=== PATIENT | male | born 1955 | race Caucasian/White ===

== ENCOUNTER 2017-04-17 09:32 | Day surgery (SDC) | payer MEDICAID, SELFPAY ==
[2017-04-17] VITALS (7 sets, daily range): BP systolic 98–120; BP diastolic 66–79; PULSE 70–79; RESP 14–16; TEMP 36.2–36.4; O2SAT 93–97; BMI 25.8
[2017-04-17 10:06] LABS: Bedside Glucose 137 mg/dL (70-110)
[2017-04-17] MEDS: Triamcinolone Acetonide 40 MG/ML Vial (11:30)
[2017-04-17] MEDS: Bupivacaine Mpf 0.5% 30 ML VIAL (11:30)
--- NOTE | 2017-04-17 11:53 | OP.PN_ITS ---
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
--- NOTE | 2017-04-17 12:10 | RAD_ITS ---
STUDY: X-RAY - RIGHT FOOT CLINICAL: Male, 61 years old. Questionable foot deformity. TECHNIQUE: AP and lateral view(s) of the foot. COMPARISON: Comparison is made with prior study dated August 21, 2016. FINDINGS: Normal talus, calcaneus, and tarsal bones. Normal visualized subtalar, talonavicular, calcaneocuboid, tarsal and tarsometatarsal articulations. Normal metatarsi. Normal metatarsophalangeal joint of the great toe. Normal tibial and fibular sesamoid bones. Normal interphalangeal joint of the great toe. Normal phalanges of the great toe. Normal second through fifth metatarsophalangeal joints. Normal interphalangeal joints and phalanges of the lesser toes. The soft tissue structures are unremarkable. RAD/Foot 2 Views IMPRESSION: Normal x-ray examination of the foot. Electronically Signed: Jake Travis MD at 13:05 EST Tel [phone], Service support ,
--- NOTE | 2017-04-18 09:04 | PCM.OPRPT ---
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 he complains of persistent pain to his midfoot of right lower extremity. it has been bothering him for many years and is progressively worsening. he last saw me in the fall of 2016 at which time an mri was ordered that showed arthritis of his right 4th tarsal metatarsal joint. I have seen him recently and we have discussed use of inserts which have been ordered but he has yet to scheduled an appointment. we have prescribed him mobic but he developed abnormal reaction (dizziness) from. we did discuss steroid injection under xray guidance. I did discuss risks of this procedure not limited to infection, pain, swelling, bleeding, hematoma, failure to resolve his pain, recurrent pain, need for repeat injection, elevated blood sugars, cardiac arrest, dvt, . patient understands these risks and consents to proceed. patient was transferred from pre-op holding area and placed on operating room table in supine position. he was identified by name and procedure. he was placed under mac anesthesia. the right foot was prepped in sterile fashion. time out was performed. using intra-op xray, a sterile injection consisting of 1/2 cc of kenalog, 1/2 cc of dexamethazone, 1/2 cc of marcaine plain was given to 4th tarsal metatarsal joint. the injection was successfully administered and a band aid was applied. patient was transferred to pacu in stable condition. he will f/u in 1 month
--- NOTE | 2017-04-18 09:09 | OP.PCM_ITS ---
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 he complains of persistent pain to his midfoot of right lower extremity. it has been bothering him for many years and is progressively worsening. he last saw me in the fall of 2016 at which time an mri was ordered that showed arthritis of his right 4th tarsal metatarsal joint. I have seen him recently and we have discussed use of inserts which have been ordered but he has yet to scheduled an appointment. we have prescribed him mobic but he developed abnormal reaction (dizziness) from. we did discuss steroid injection under xray guidance. I did discuss risks of this procedure not limited to infection, pain, swelling, bleeding, hematoma, failure to resolve his pain, recurrent pain, need for repeat injection, elevated blood sugars, cardiac arrest , dvt, . patient understands these risks and consents to proceed. patient was transferred from pre-op holding area and placed on operating room table in supine position. he was identified by name and procedure. he was placed under mac anesthesia. the right foot was prepped in sterile fashion. time out was performed. using intra-op xray, a sterile injection consisting of 1/2 cc of kenalog, 1/2 cc of dexamethazone, 1/2 cc of marcaine plain was given to 4th tarsal metatarsal joint. the injection was successfully administered and a band aid was applied. patient was transferred to pacu in stable condition. he will f/u in 1 month
== END 2017-04-17 12:59 | disposition home or self-care (01) ==
LOC: SDC 09:33 → AC 09:50
PROVIDERS: Family Provider Family Medicine; PCP Family Medicine; Visit Provider Podiatrist Foot & Ankle Surgery
PROC: (CPT 20605; principal; 2017-04-17 11:25)
DX: M13.871 Other specified arthritis, right ankle and foot (principal); E11.9 Type 2 diabetes mellitus without complications; J45.909 Unspecified asthma, uncomplicated; E78.2 Mixed hyperlipidemia; I10 Essential (primary) hypertension; F41.1 Generalized anxiety disorder; I25.10 Atherosclerotic heart disease of native coronary artery without angina pectoris; M47.812 Spondylosis without myelopathy or radiculopathy, cervical region; K21.9 Gastro-esophageal reflux disease without esophagitis; Z79.4 Long term (current) use of insulin; Z79.899 Other long term (current) drug therapy
CPT/HCPCS: 20600; 73620; 76000; 82962; J3010; J7120; J2405

== ENCOUNTER 2018-08-17 18:43 | Emergency (ER) | payer MEDICARE, SELFPAY ==
[2018-08-17 18:44] VITALS: BP 140/79; PULSE 89; RESP 16; TEMP 36.8; O2SAT 95; BMI 25.5
--- NOTE | 2018-08-17 19:51 | ED.DCSUM_ITS ---
- ER Visit Summary Date of Service: 08/17/18 Chief Complaint: Groin pain History of Present Illness: The patient is a 63 M with left groin pain. Symptoms started 3 weeks ago when he was wrestling with his son. He felt a tear. He has had continued pain in his left groin. Worse with movement and hip flexion. Better with rest. No associated symptoms like urinary symptoms, GI symptoms, rash, numbness, weakness. No history of this in the past. Physical Examination: Afebrile and vital signs unremarkable. Patient alert and oriented. No acute distress. Abdomen soft and nontender. Left inguinal region tender to palpation. No masses palpable. Skin appears normal. Hip flexion is intact but weak secondary to pain. Good strength and sensation otherwise. Vascularly intact. Skin unremarkable. Calf normal. Test Results: None Emergency Department Course and Treatment: Patient presents with myofascial pain. This is reproducible on palpation. Concerning for a strain. No other red flag features or findings. I do not believe x-rays will provide any useful information. We will treat the patient medically. [place], anti-inflammatories, rest, use crutches. He has them at home. He will be referred to orthopedics for follow-up. Treatment Plan: As above Disposition: Discharge Impression: 1. Left hip strain This note was generated with [employer] dictation software. It may contain incorrect words, spelling, and punctuation that were not noted in review of the chart prior to signing ED Disposition - Plan for ED Patient: Referrals: Kenny Thomas MD [Primary Care Provider] -
--- NOTE | 2018-08-17 19:54 | ED.DEP ---
ED Disposition - Plan for ED Patient: Instructions: Hip Strain Prescriptions: Hydrocodone Bitart/Apap 5-325 [[employer] 5MG-325MG] 1 tab PO Q6H PRN PRN 3 Days #10 tab PRN Reason: Pain Prescription Printed Referrals: Be Duarte DO [STAFF PHYSICIAN] -
[2018-08-17] MEDS: HYDROcodone Bitartrate/Apap 5/325 Tablet PO (19:59)
[2018-08-17 20:12] VITALS: PULSE 84; RESP 18; O2SAT 99
--- NOTE | 2018-08-17 20:12 | ED.RN ---
THIS NURSE REVIEWED D/C INSTRUCTIONS WITH PT. PT VERBALIZED UNDERSTANDING OF INSTRUCTIONS. PT DENIES FURTHER NEEDS OR QUESTIONS AT THIS TIME. PT ASSISTED TO HIS SISTER'S VEHICLE VIA W/C
== END 2018-08-17 20:13 | disposition home or self-care (01) ==
LOC: ED 19:49
PROVIDERS: Emergency Provider Emergency Medicine; Family Provider Family Medicine; PCP Family Medicine
DX: S76.012A Strain of muscle, fascia and tendon of left hip, initial encounter (principal); X58.XXXA Exposure to other specified factors, initial encounter; Y93.72 Activity, wrestling; Y92.9 Unspecified place or not applicable; E11.9 Type 2 diabetes mellitus without complications; M48.02 Spinal stenosis, cervical region; Z79.4 Long term (current) use of insulin; Z79.899 Other long term (current) drug therapy
CPT/HCPCS: 99283

== ENCOUNTER → 2018-09-06 | Outpatient (CLI) | payer MEDICARE, SELFPAY ==
[2018-08-17 18:44] VITALS: BMI 25.5
--- NOTE | 2018-09-06 09:32 | MRI_ITS ---
HISTORY: contusion left hip, left groin pain, difficulty lifting leg. Pain in left groin area. Symptoms ongoing for 2 months. Type 2 diabetes. EXAMINATION: MR Hip W/O Contrast TECHNIQUE: Multiplanar and multisequence MR images of the left hip. IV Contrast dosage and agent: None. COMPARISON: No comparison imaging of the left hip FINDINGS: BONE: No femoral neck fracture, avascular necrosis of the femoral head. No sacral insufficiency fracture perceived. A small amount of edema is present within the left superior pubic ramus at the origin of the pectineus. Otherwise No suspicious bone marrow signal alteration. JOINT: Articular cartilage is thinned small amount of fluid is present within both hip joints, but these are not large enough to be considered pathological effusions ACETABULAR LABRUM: Suboptimally evaluated on this non-arthrographic study TENDONS: The pectineus tendon at its origin is edematous and thickened on the left MUSCLES: Minimal edema at the origin of the pectineus musculotendinous junction BURSA: No trochanteric bursitis. OTHER SOFT TISSUES: Gluteus medius tendinosis bilaterally, right greater than left. PELVIS: The bladder is mostly decompressed. Bowel gas pattern is normal. No pathologic adenopathy. MRI/Lower Ext Joint Only (Routine) IMPRESSION: Partial avulsion and tendinosis at the origin of the left pectineus tendon. Mild bilateral gluteus medius tendinosis. at 2027 Reported and signed by: Nik Crouch MD Electronically Signed: Nik Crouch MD at 20:26 EDT Tel , Service support ,
== END | disposition home or self-care (01) ==
LOC: MRI 09:25
PROVIDERS: Family Provider Family Medicine; PCP Family Medicine; Referring Provider Physician Assistant; Visit Provider Physician Assistant
DX: S70.02XA Contusion of left hip, initial encounter (principal)
CPT/HCPCS: 73721

== ENCOUNTER 2018-10-12 08:00 | Outpatient (RCR) | payer MEDICARE, SELFPAY ==
--- NOTE | 2018-09-21 09:24 | HP.PTEVAL_ITS ---
Patient's Visit Information ELIJAH MEJIA is a 63 year old M referred to Physical Therapy by Alma Duarte with a diagnosis of L hip strain. Date of Evaluation: 09/21/18 Physical Therapist: Buster Ruiz DPT, OCS, CSCS - Visit Plan Frequency: 3x /Week Duration: 4-6 Weeks Plan: 3x/week for 3-6... 1. ROM gently to hip flexors adn adductors to improve abd and extension. 2. Gradual progression of stretght L hip gentlya t first NWB to WB. 3. Fucntional progression gait and steps. 4. MH and rollout to adductor group and quad/hip flexor prior to stretch. - Subjective Findings: L hip hurts after wrestling with son. felt a sharp pull. Mri showed groin muscle pulled from bone. That was two months ago. Walks with a limp since. Not improving much. Hard to lie comfortably and move leg to pull it centrally. X rays were Ok. No problems prior. Sleep is hard to move and wakes him up Sleeps on back. Comfortable for the most part at rest. Hurts to walk. Transferring hurts. Retired from [employer]. Enjoys fishing and camping [employer] still is camping, slow and painful. Basic ADLs are getting done slow and painful. Has WC and walker at the house to get around. Dogs in house make walker hard. - Pain L hip groin Pain Intensity (Out of 10): 1 Pain Intensity Range: 0, 5 - Objective reflexes patella and achilles 2/3. Sensation LE WNL to gross light touch. strength is 3+ L knee adn 4+ R, 4+ B ankle. R hip is 4+, L hip ext 3+, add 3, abd 3+ adn flexion 3. Defintie pain with adductiona nd flexion. Pt walks antalgic on L and slightly hunched over avoiding ext L hip. Hard to lie flat due to L hip discomfort but improves as he lies there longer. Transfers I chair with UE. Painful with rolling scooting using L hip. Tender to palpation L groin at adductor attachment adn into hip flexor. - Goals Goal 1:: Full aROM L hip without hesitation or pain Goal Time Frame: 4-6 Weeks Goal 2:: Patient able to ambulate without gait deviations Goal Time Frame: 4-6 Weeks Goal 3:: steps reciprocally without pain. 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 Rehabilitation Potential: Fair - Anticipated Interventions Patient/Client Instruction: Educate patient on: Condition, Plan of Care For the Purpose of:: To decrease pain, To increase ROM, To improve muscle performance and motor function, To improve ability of physical actions for home/community/work/leisure Therapeutic Exercise to Include: Strength training, Flexibilty training, Gait and locomotor training, Passive ROM, Active ROM For the Purpose of:: To decrease pain, To increase ROM, To improve muscle performance and motor function, To improve ability of physical actions for home/community/work/leisure, To improve gait and locomotor functions Manual Therapy Techniques to Include: Soft tissue mobilization For the Purpose of:: To increase ROM Cryotherapy (ice pack, ice massage): Yes Thermo therapy (hot pack): Yes For the Purpose of:: To decrease pain, To decrease swelling/inflammation Thank you for the opportunity to evaluate your patient. For Medicare and Medicare HMO plans, please review the plan of care and approve it. It will need to be FAXED BACK to us at [phone] for Medicare purposes. For Medicare only, by signing this I certify the plan of care. Please let me know if there are questions or concerns regarding this plan of care. Physician Signature: Date:
--- NOTE | 2018-10-12 08:50 | HP.PTDCSUM_ITS ---
HP - PT D/C Summary It has been my pleasure to treat ELIJAH MEJIA under orders from [facility], for the diagnosis of L hip strain for a total of 8 visit(s). Discharge Date: 10/12/18 Please see the following information for a summary of their discharge status. - Subjective Subjective: Doing HEP and feeling stronger. helping tremendously. Moving legs better in bed. Pain is 0-1/10 L groin trasniently. usually turning to quick. Jumping off the truck the other day caused him pain. Only f/u if have to. - Pain L hip groin Pain Intensity (Out of 10): 0 - Overall Improvement % Improvement: 99 - Objective Objective/Function: Full aROM L hip except ext adn abd still slightly painful. Strength 4+/5 without pain. Steps are normal and reciprocal without hesitation. Walks normal. OVERALL EXCELLENT PROGRESS AND DOING WELL. - Goals Goal 1:: Full aROM L hip without hesitation or pain Goal Progress: except ext hurts slightly Goal 2:: Patient able to ambulate without gait deviations Goal Progress: Goal Met Goal 3:: steps reciprocally without pain. 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 - Plan Plan: D/C - D/C Information Discharge Comments: Will cotninue via HEP and contact doctor if needed. If there are questions or concerns regarding this patient's physical therapy, please feel free to call me at [phone]. Thank you for the referral of this patient. Sincerely, Buster Ruiz, DPT, OCS, CSCS
== END 2018-10-12 19:00 | disposition home or self-care (01) ==
LOC: PT 08:00
PROVIDERS: Family Provider Family Medicine; PCP Family Medicine; Referring Provider Physician Assistant; Visit Provider Physician Assistant
DX: S73.192D Other sprain of left hip, subsequent encounter (principal)
CPT/HCPCS: 97110; 97161; 97530

== ENCOUNTER 2023-11-28 09:10 | Emergency (ER) | payer MEDICARE, SELFPAY ==
[2023-11-28 09:11] VITALS: BP 162/97; PULSE 81; RESP 16; TEMP 36.6; O2SAT 98; BMI 28.4
[2023-11-28 09:16] VITALS: BP 120/67; PULSE 68; RESP 14; O2SAT 89
--- NOTE | 2023-11-28 09:49 | EX.ED.DYSGE1 ---
HPI History of Present Illness Chief Complaint: Lower Extremity Injury PFSH PFS Home Medications ?Medication ?Instructions ?Recorded ?Last Taken ?Type glimepiride 4 mg tablet 4 mg PO BID 05/24/13 08/17/18 History lisinopril 10 mg tablet 10 mg PO DAILY 05/24/13 08/17/18 History simvastatin 20 mg tablet 20 mg PO QHS 05/24/13 08/17/18 History albuterol sulfate 90 mcg/actuation 1 - 2 puff inhalation Q4H PRN PRN 10/03/14 2 Months Ago History aerosol inhaler (ProAir HFA) Asthma ~06/17/18 insulin glargine 100 unit/mL (3 50 unit SQ QHS 04/11/17 1 Day Ago History mL) subcutaneous pen (Basaglar ~08/16/18 KwikPen U-100 Insulin) tamsulosin 0.4 mg capsule (Flomax) 0.4 mg PO QHS 04/11/17 08/17/18 History Allergy/AdvReac Type Severity Reaction Status Date / Time doxepin HCl (From [place]) Allergy Other Verified 11/28/23 09:11 meclofenamate sodium (From Allergy Other Verified 11/28/23 09:11 [place]) pneumococcal vaccine Allergy Rash Verified 11/28/23 09:11 (Pneumococcal Vaccine) metformin AdvReac Nausea Verified 11/28/23 09:11 ropinirole (From Requip) AdvReac Other Verified 11/28/23 09:11 Social History Smoking Status: Never smoker EXAM Physical Exam Const Vital Signs: 11/28/23 09:11 11/28/23 09:16 Temperature 97.8 F Temperature Source Temporal Pulse Rate 81 68 Respiratory Rate 16 14 Blood Pressure 162/97 H 120/67 Blood Pressure Mean 118 84 Pulse Ox 98 89 Oxygen Delivery Method Room Air Room Air MDM MDM MDM Narrative Medical decision making narrative: HISTORY OF PRESENT ILLNESS: 5-year-old male presents right knee pain. States he is riding his bike the other day and he tweaked his right knee. REVIEW OF SYSTEMS: Pertinent positives: Right knee pain Pertinent negatives: Swelling, numbness, tingling, loss of sensation PHYSICAL EXAM: Nursing triage notes reviewed, Vital signs reviewed Constitutional: please see mdm Extremities: No edema Neuro: Intact sensation L1-S1 dermatomal distributions. Intact 5/5 strength in hip flexion (T12-L3). Knee extension (L2-L4). Ankle dorsiflexion (L4-L5). Ankle plantar flexion (S1). Great toe extension (L5). 2+ patellar and Achilles DTRs. Skin: No rash or lesions noted MEDICAL DECISION MAKING: Chief Complaint: Knee pain External records reviewed: Reviewed prior imaging studies. Reviewed prior x-ray of the right knee from 2014 which showed mild joint space narrowing involving the medial compartment the knee joint Factors affecting care: Knee arthritis MDM Narrative: Patient was initially hemodynamically stable, afebrile and nontoxic-appearing. Exam with intact quadricep and complex. Compartments are soft. No joint effusion, redness swelling or pain on forced exam to suggest compartment syndrome or septic arthritis. Pulses are intact. No stigmata of VTE. Low risk DVT Wells score. I considered the following differential diagnosis: Knee fracture, dislocation, contusion, soft tissue injury (ACL strain, meniscal tear) ALL IMAGES (IF OBTAINED) HAVE BEEN PERSONALLY REVIEWED AND INTERPRETED BY MYSELF. X-ray of the right knee was read reviewed person myself showed no acute fracture dislocation Patient is likely some from a soft tissue injury will need an MRI. No indication for emergent MRI. Patient will need follow-up after conservative therapy with RICE therapy, PT OT. Will prescribe meloxicam. The patient and/or family, caregivers express understanding. The patient and/or family, caregivers agrees with the plan. Shared decision making: I will have a discussion with the patient and or visitors regarding risk/benefits of further testing or admission. They will be made aware of of the risk/benefits inherent in this decision they will be given the opportunity to voice understanding. Total critical care time today provided was at least 0 minutes. This excludes separately billable procedures. Critical care time (if documented) is secondary to the patient having high probability of clinically significant/life threatening deterioration in the patient's condition which required my urgent intervention. Impression: 1. Acute right knee pain 2. Right knee sprain Dispo: Discharge home This note was generated with [employer] dictation software. It may contain incorrect words, spelling, and punctuation that were not noted in review of the chart prior to signing. Discharge Plan Triage Chief Complaint: Lower Extremity Injury ED Provider: Jaswinder Gregorio Dx/Rx/DC Orders Prescriptions: No Action simvastatin 20 MG tablet 20 mg PO QHS Patient Comments: lisinopril 10 MG tablet 10 mg PO DAILY Patient Comments: glimepiride 4 MG tablet 4 mg PO BID Patient Comments: albuterol sulfate [ProAir HFA] 1 PUFF inhaler 1 - 2 puff inhalation Q4H PRN PRN (Reason: Asthma) tamsulosin [Flomax] 0.4 MG capsule 0.4 mg PO QHS insulin glargine [Basaglar KwikPen U-100 Insulin] 100 UNIT/ML insulin pen 50 unit SQ QHS Primary Care Provider: Kenny Thomas Referrals: Kenny Thomas MD [Primary Care Provider] - Print Language: Urdu
--- NOTE | 2023-11-28 11:05 | RAD_ITS ---
HISTORY: knee pain. TECHNIQUE: XR Knee 3 Views. COMPARISON: None. FINDINGS: BONES : No acute fracture identified. Mineralization unremarkable. JOINTS: No dislocation. Very mild medial compartment joint space narrowing. SOFT TISSUES: Anterior soft tissue swelling. RAD/Knee 3 Views IMPRESSION: No acute fracture or dislocation identified in the right knee. Electronically Signed: Therese Aranda MD at 11:45 EDT ,
== END 2023-11-28 12:07 | disposition home or self-care (01) ==
PROVIDERS: Emergency Provider Emergency Medicine; PCP Family Medicine; Visit Provider Emergency Medicine
DX: S83.91XA Sprain of unspecified site of right knee, initial encounter (principal); Z79.4 Long term (current) use of insulin; X58.XXXA Exposure to other specified factors, initial encounter; Z79.84 Long term (current) use of oral hypoglycemic drugs
CPT/HCPCS: 73562; 99282